=== PATIENT | female | born 1980 | race Caucasian/White ===

== ENCOUNTER → 2017-02-28 | Outpatient (CLI) | payer OTHER ==
[~2017-02-28] VITALS: Ht 162.6 cm; Wt 72.6 kg
[2017-02-28 12:54] LABS: Urine Bilirubin Negative (Negative); Urine Blood 1+ /uL (Negative); Urine Color Yellow (Yellow); Urine Glucose Normal (Normal); Urine Ketone Negative (Negative); Urine Nitrite Negative (Negative); Urine Urobilinogen Normal (Negative)
[2017-02-28 12:59] LABS: INR 0.96 (0.9-1.15); Partial Thromboplastin Time 29.5 sec (22.64-33.71); Prothrombin Time 10.5 sec (9.37-12.3)
[2017-02-28 13:08] LABS: Albumin 3.8 g/dL (3.4-5.0); BUN/Creatinine Ratio 16.9; Bilirubin, Total 0.4 mg/dL (0.2-1.0); Calcium 8.9 mg/dL (8.5-10.1); Potassium 3.4 mmol/L (3.5-5.1); Total Protein 7.8 g/dL (6.4-8.2)
[2017-02-28 14:10] LABS: Basophils # (auto) 0 uL; Basophils % (auto) 0.2 % (0.0-2.0); Eosinophils # (auto) 0 uL; Eosinophils % (auto) 0.2 % (0.0-7.0); Hematocrit 39.1 % (36.0-46.0); Hemoglobin 12.9 g/dL (12.2-16.2); Lymphocytes # (auto) 2.1 uL; Lymphocytes % (auto) 21.8 % (10.0-50.0); Mean Corpuscular Hemoglobin 29.9 pg (28.0-32.0); Mean Corpuscular Hgb Conc. 32.9 g/dL (32.0-36.0); Mean Corpuscular Volume 90.7 fL (80.0-100.0); Mean Platelet Volume 8.4 fL (6.9-10.8); Monocytes # (auto) 0.7 uL; Monocytes % (auto) 7.1 % (0.0-12.0); Neutrophils # (auto) 6.7 uL; Neutrophils % (auto) 70.7 % (37.0-80.0); Nucleated Red Blood Cells % 0.1 %; Platelet Count (auto) 281 10^3/uL (140-450); Red Cell Distribution Width 13.4 % (11.8-14.3); White Blood Cell 9.5 10^3/uL (4.4-10.8)
== END ==
LOC: LAB 08:00 → EDSTATUS 03-03 07:00
PROVIDERS: ATTEND Obstetrics & Gynecology
DX: Z30.2 Encounter for sterilization (principal); I10 Essential (primary) hypertension
CPT/HCPCS: 36415; 80053; 81003; 84702; 85025; 85610; 85730; 86850; 86900; 86901

== ENCOUNTER → 2017-03-16 | Outpatient (CLI) | payer OTHER | END | disposition home or self-care (01) | LOC: LAB 11:37 | PROVIDERS: ATTEND Obstetrics & Gynecology | DX: N91.2 Amenorrhea, unspecified (principal) | CPT/HCPCS: 36415; 84702 ==

== ENCOUNTER → 2017-03-23 | Outpatient (CLI) | payer OTHER | END | disposition home or self-care (01) | LOC: LAB 11:18 | PROVIDERS: ATTEND Obstetrics & Gynecology | DX: N91.2 Amenorrhea, unspecified (principal) | CPT/HCPCS: 36415; 84702 ==

== ENCOUNTER → 2017-04-06 | Outpatient (CLI) | payer OTHER | END | disposition home or self-care (01) | LOC: LAB 11:06 | PROVIDERS: ATTEND Obstetrics & Gynecology | DX: N91.2 Amenorrhea, unspecified (principal) | CPT/HCPCS: 36415; 84702 ==

== ENCOUNTER 2017-05-05 06:12 | Day surgery (SDC) | payer OTHER ==
[2017-05-04 11:28] LABS: Basophils # (auto) 0 uL; Basophils % (auto) 0.3 % (0.0-2.0); Eosinophils # (auto) 0 uL; Eosinophils % (auto) 0.5 % (0.0-7.0); Hematocrit 39.6 % (36.0-46.0); Hemoglobin 13.1 g/dL (12.2-16.2); Lymphocytes # (auto) 2.6 uL; Lymphocytes % (auto) 29.3 % (10.0-50.0); Mean Corpuscular Hemoglobin 30.3 pg (28.0-32.0); Mean Corpuscular Hgb Conc. 33.2 g/dL (32.0-36.0); Mean Corpuscular Volume 91.3 fL (80.0-100.0); Mean Platelet Volume 8.3 fL (6.9-10.8); Monocytes # (auto) 0.7 uL; Monocytes % (auto) 7.9 % (0.0-12.0); Neutrophils # (auto) 5.4 uL; Platelet Count (auto) 287 10^3/uL (140-450); Red Cell Distribution Width 13.8 % (11.8-14.3); Urine Bilirubin Negative (Negative); Urine Blood TRACE /uL (Negative); Urine Color Yellow (Yellow); Urine Glucose Normal (Normal); Urine Ketone Negative (Negative); Urine Nitrite POSITIVE (Negative); Urine Urobilinogen Normal (Negative); Urine pH 5.5 (5.0-8.0); White Blood Cell 8.7 10^3/uL (4.4-10.8)
[2017-05-04 11:44] LABS: INR 0.97 (0.9-1.15); Partial Thromboplastin Time 29.4 sec (22.64-33.71); Prothrombin Time 10.6 sec (9.37-12.3)
[2017-05-04 11:52] LABS: Albumin 3.9 g/dL (3.4-5.0); BUN/Creatinine Ratio 23.1; Calcium 9.3 mg/dL (8.5-10.1); Potassium 3.2 mmol/L (3.5-5.1)
[2017-05-04 11:54] LABS: Bilirubin, Total 0.4 mg/dL (0.2-1.0); Total Protein 8.4 g/dL (6.4-8.2)
[~2017-05-05] VITALS: Ht 162.6 cm; Wt 72.6 kg
[2017-05-05] MEDS ORDERED: ceFAZolin 1GM/50ML 50 ML IV ONE (06:32)
[2017-05-05] MEDS ORDERED: SUCCINYLCHOLINE CHLORIDE 20 MG/ML 10ML VIAL IV ONE (07:09)
[2017-05-05] MEDS ORDERED: METHYLENE BLUE 0.5% 5MG/ML 10ml AMP IV ONE (07:11)
[2017-05-05] MEDS ORDERED: LIDOCAINE HCL (LOCAL ANESTH.) 0.5 % 50ML MDV IJ ONE (07:11)
[2017-05-05] MEDS ORDERED: BUPIVACAINE 0.25% INJ 50ML VIAL ONE (07:11)
[2017-05-05] MEDS ORDERED: MEPERIDINE HCL (50 MG/ML) 1 ML VIAL ONE (07:16)
[2017-05-05] MEDS ORDERED: NEOSTIGMINE 1 MG/ML INJ (10mg/10ML VIAL) ONE (07:16)
[2017-05-05] MEDS ORDERED: PROPOFOL 10 MG/ML 20 ML IV ONE (07:16)
[2017-05-05] MEDS ORDERED: fentaNYL CITRATE 100 MCG/2 ML VL ONE (07:16)
[2017-05-05] MEDS ORDERED: GLYCOPYRROLATE 0.2 MG/ML 1ML VIAL ONE (07:16)
[2017-05-05] MEDS ORDERED: KETOROLAC TROMETH 60MG/2ML VIAL IM ONE (07:16)
[2017-05-05] MEDS ORDERED: ROCURONIUM 10MG/ML 10ML VIAL IV ONE (07:16)
[2017-05-05] MEDS ORDERED: MIDAZOLAM HCL 1MG/1ML-2 ML VIAL ONE (07:16)
[2017-05-05] MEDS ORDERED: ONDANSETRON HCL 4 MG/2 ML VIAL ONE (07:16)
[2017-05-05] MEDS ORDERED: LACTATED RINGER'S 1,000 ML IV SCH (08:24)
[2017-05-05] MEDS ORDERED: ONDANSETRON HCL 4 MG/2 ML VIAL IV PRN (08:30)
[2017-05-05 09:25] VITALS: BP 133/80
== END 2017-05-05 09:28 | disposition home or self-care (01) ==
LOC: SUR 06:12
PROVIDERS: ATTEND Obstetrics & Gynecology
DX: Z30.2 Encounter for sterilization (principal); D69.6 Thrombocytopenia, unspecified; E66.9 Obesity, unspecified; Z68.27 Body mass index [BMI] 27.0-27.9, adult
CPT/HCPCS: 36415; 58671; 80053; 81003; 84702; 85025; 85610; 85730; 86850; 86900; 86901; J0330; J0690; J1885; J2175; J2250; J2405; J2704; J3010; J3490

== ENCOUNTER → 2020-09-22 | Outpatient (CLI) | payer OTHER ==
[2020-09-22 09:45] LABS: Basophils # (auto) 0 10 ^3/uL (0-0.2); Basophils % (auto) 0.2 % (0.0-2.0); Eosinophils # (auto) 0 10 ^3/uL (0-0.8); Eosinophils % (auto) 0.6 % (0.0-7.0); Hematocrit 36.5 % (36.0-46.0); Hemoglobin 12.3 g/dL (12.2-16.2); Lymphocytes # (auto) 1.8 10 ^3/uL (0.4-5.4); Mean Corpuscular Hemoglobin 29.9 pg (28.0-32.0); Mean Corpuscular Hgb Conc. 33.6 g/dL (32.0-36.0); Mean Corpuscular Volume 88.8 fL (80.0-100.0); Monocytes # (auto) 0.5 10 ^3/uL (0-1.3); Monocytes % (auto) 7.8 % (0.0-12.0); Neutrophils # (auto) 4.4 10 ^3/uL (1.6-8.6); Neutrophils % (auto) 64.4 % (37.0-80.0); Nucleated Red Blood Cells % 0.2 %; Platelet Count (auto) 320 10^3/uL (140-450); Red Cell Distribution Width 14.3 % (11.8-14.3); White Blood Cell 6.8 10^3/uL (4.4-10.8)
[2020-09-22 09:50] LABS: Urine Bacteria MOD /hpf (None Seen); Urine Blood TRACE /uL (Negative); Urine Specific Gravity 1.025 (1.001-1.035); Urine WBC 8 /hpf (0 - 5)
[2020-09-22 10:36] LABS: Albumin 3.9 g/dL (3.4-5.0); Potassium 3.7 mmol/L (3.5-5.1)
[2020-09-22 10:42] LABS: BUN/Creatinine Ratio 16.7; Bilirubin, Total 0.3 mg/dL (0.2-1.0); Total Protein 7.9 g/dL (6.4-8.2)
== END | disposition home or self-care (01) ==
LOC: LAB 09:12
PROVIDERS: ATTEND Internal Medicine
DX: R53.83 Other fatigue (principal); R51.9 Headache, unspecified
CPT/HCPCS: 36415; 80053; 80061; 81001; 84439; 84443; 85025; 85652

== ENCOUNTER → 2021-10-19 | Outpatient (CLI) | payer OTHER ==
[2021-10-19 10:46] LABS: Follicle Stimulating Hormone 2.64 IU/L (SEE BELOW); Leuteinizing Hormone 3.4 IU/L
== END | disposition home or self-care (01) ==
LOC: LAB 09:10
PROVIDERS: ATTEND Obstetrics & Gynecology
DX: N93.9 Abnormal uterine and vaginal bleeding, unspecified (principal)
CPT/HCPCS: 36415; 82670; 83001; 83002; 84403; 84443

== ENCOUNTER 2021-12-24 07:25 | Day surgery (SDC) | payer OTHER ==
[2021-12-22 10:58] LABS: Basophils # (auto) 0 10 ^3/uL (0-0.2); Basophils % (auto) 0.2 % (0.0-2.0); Eosinophils # (auto) 0.1 10 ^3/uL (0-0.8); Eosinophils % (auto) 0.8 % (0.0-7.0); Hematocrit 37.3 % (36.0-46.0); Hemoglobin 12.3 g/dL (12.2-16.2); Lymphocytes # (auto) 1.7 10 ^3/uL (0.4-5.4); Lymphocytes % (auto) 26.5 % (10.0-50.0); Mean Corpuscular Hemoglobin 29.8 pg (28.0-32.0); Mean Corpuscular Volume 90.3 fL (80.0-100.0); Monocytes # (auto) 0.6 10 ^3/uL (0-1.3); Monocytes % (auto) 8.9 % (0.0-12.0); Neutrophils % (auto) 63.6 % (37.0-80.0); Nucleated Red Blood Cells % 0.1 %; Red Blood Cells 4.13 10^6/uL (4.0-5.20); Red Cell Distribution Width 14.3 % (11.8-14.3); White Blood Cell 6.3 10^3/uL (4.4-10.8)
[2021-12-22 11:13] LABS: Urine Bacteria MANY /hpf (None Seen); Urine Blood 1+ /uL (Negative); Urine Mucus FEW (None Seen); Urine Specific Gravity 1.026 (1.001-1.035); Urine WBC 13 /hpf (0 - 5)
[2021-12-22 12:02] LABS: INR 0.96 (0.9-1.15); Partial Thromboplastin Time 30.2 sec (24.6-33.4)
[2021-12-22 12:10] LABS: Albumin 3.5 g/dL (3.4-5.0); BUN/Creatinine Ratio 20.3; Bilirubin, Total 0.3 mg/dL (0.2-1.0); Calcium 8.8 mg/dL (8.5-10.1); Total Protein 7.4 g/dL (6.4-8.2)
[~2021-12-24] VITALS: Ht 162.6 cm; Wt 78.0 kg
[2021-12-24] MEDS ORDERED: ceFAZolin 1GM/50ML 100 ML IV ONE (07:45)
[2021-12-24] MEDS ORDERED: MEPERIDINE HCL (25 MG/ML) 1ML VIAL ONE (08:55)
[2021-12-24] MEDS ORDERED: MIDAZOLAM HCL 2MG/2ML 2ml VIAL (1mg/ml) ONE (08:56)
[2021-12-24] MEDS ORDERED: fentaNYL CITRATE 100 MCG/2 ML VL ONE (08:56)
[2021-12-24] MEDS ORDERED: LABETALOL HCL 5 MG/ML 4ML SYRINGE IV PRN (09:15)
[2021-12-24] MEDS ORDERED: MORPHINE SULFATE 4 MG/ML SYR/VIAL IV PRN (09:15)
[2021-12-24] MEDS ORDERED: HYDROmorphone HCL 2 MG/ML VL/or syr IV PRN (09:15)
[2021-12-24] MEDS ORDERED: MIDAZOLAM HCL 2MG/2ML 2ml VIAL (1mg/ml) IV PRN (09:15)
[2021-12-24] MEDS ORDERED: ePHEDrine SULFATE 50 MG/ML AMP IV PRN (09:15)
[2021-12-24] MEDS ORDERED: KETOROLAC TROMETH 30 MG/ML 1ML VIAL IV ONE (09:15)
[2021-12-24] MEDS ORDERED: ONDANSETRON HCL 4 MG/2 ML VIAL IV PRN ×2 (09:15→10:00)
[2021-12-24] MEDS ORDERED: DexAMETHasone SOD PHOS 10MG/1ML VIAL INJ ONE (09:32)
[2021-12-24] MEDS ORDERED: PROPOFOL 10 MG/ML 20 ML IV ONE (09:32)
[2021-12-24] MEDS ORDERED: ONDA-144 PO (10:00)
[2021-12-24] MEDS ORDERED: IBUP800T27 PO (10:00)
[2021-12-24] MEDS ORDERED: LACTATED RINGER'S 1,000 ML IV SCH (10:00)
[2021-12-24] MEDS ORDERED: HYDR-4902 PO (10:00)
[2021-12-24 10:40] VITALS: BP 126/80
== END 2021-12-24 10:44 | disposition home or self-care (01) ==
LOC: SUR 07:25
PROVIDERS: ATTEND Obstetrics & Gynecology
DX: N93.9 Abnormal uterine and vaginal bleeding, unspecified (principal); N92.0 Excessive and frequent menstruation with regular cycle; Z90.89 Acquired absence of other organs; Z83.3 Family history of diabetes mellitus; Z98.51 Tubal ligation status; Z20.822 Contact with and (suspected) exposure to COVID-19
CPT/HCPCS: 36415; 58558; 80053; 81001; 81025; 84702; 85025; 85610; 85730; 86850; 86900; 86901; J0690; J1100; J2175; J2250; J2704; J3010; U0003

== ENCOUNTER → 2025-03-26 | Outpatient (CLI) | payer OTHER ==
[~2025-03-26] MED LIST: HYDR-4902 PO; IBUP-1456 PO; ONDA-144 PO
[2025-03-26 09:40] LABS: Hematocrit 35.7 % (36.0-46.0); Hemoglobin 11.7 g/dL (12.2-16.2); Mean Corpuscular Hemoglobin 28.8 pg (28.0-32.0); Mean Corpuscular Volume 87.8 fL (80.0-100.0); Nucleated Red Blood Cells % 0.2 %
[2025-03-26 11:42] LABS: Calcium 9.1 mg/dL (8.7-10.4); Chloride 106 mmol/L (98-107); Potassium 4.0 mmol/L (3.5-5.1); Sodium 141 mmol/L (136-145)
[2025-03-26 11:43] LABS: Anion Gap 9 (5-15); Carbon Dioxide 26 mmol/L (20-31)
[2025-03-26 11:48] LABS: BUN/Creatinine Ratio 18.5 (10.0-20.0); Blood Urea Nitrogen 12 mg/dL (9-23); Glucose 96 mg/dL (74-106)
[2025-03-26 11:49] LABS: Beta HCG, Quantitative 1.1 mIU/mL (1.5-4.2)
[2025-03-26 11:51] LABS: Thyroid Stimulating Hormone 1.0 uIU/mL (0.55-4.78)
[2025-03-26 12:29] LABS: Follicle Stimulating Hormone 7.42 IU/L (SEE BELOW)
[2025-03-26 12:31] LABS: Free T4 (Free Thyroxine) 1.24 ng/dL (0.89-1.76)
== END | disposition home or self-care (01) ==
LOC: LAB 08:44
PROVIDERS: ATTEND Obstetrics & Gynecology
DX: E28.2 Polycystic ovarian syndrome (principal)
CPT/HCPCS: 36415; 80048; 82670; 83001; 83002; 83036; 84146; 84402; 84403; 84439; 84443; 84702; 85025

== ENCOUNTER 2025-04-25 06:35 | Day surgery (SDC) | payer OTHER ==
[2025-04-23 10:51] LABS: Hematocrit 37.0 % (36.0-46.0); Hemoglobin 12.0 g/dL (12.2-16.2); Mean Corpuscular Hemoglobin 28.4 pg (28.0-32.0); Mean Corpuscular Volume 87.6 fL (80.0-100.0); Nucleated Red Blood Cells % 0.0 %
[2025-04-23 11:03] LABS: INR 1.03 (0.9-1.15); Partial Thromboplastin Time 31.1 SEC (24.5-34.5); Prothrombin Time 10.9 sec (9.3-11.8)
[2025-04-23 11:07] LABS: Albumin 4.7 g/dL (3.2-4.8); Alkaline Phosphatase 94 U/L (46-116); Anion Gap 10 (5-15); BUN/Creatinine Ratio 18.9 (10.0-20.0); Blood Urea Nitrogen 14 mg/dL (9-23); Calcium 9.5 mg/dL (8.7-10.4); Carbon Dioxide 26 mmol/L (20-31); Chloride 106 mmol/L (98-107); Glucose 89 mg/dL (74-106); Potassium 4.0 mmol/L (3.5-5.1); Sodium 142 mmol/L (136-145); Total Protein 7.9 g/dL (5.7-8.2)
[2025-04-23 11:08] LABS: Bilirubin, Total 0.3 mg/dL (0.2-1.0)
[2025-04-23 11:09] LABS: Urine Protein, UAD Negative (Negative)
[2025-04-23 11:11] LABS: Alanine Aminotransferase 54 U/L (7-40)
--- NOTE | 2025-04-24 02:10 | DVHHP ---
ADMIT DATE: 04/25/2025 PREADMIT HISTORY AND PHYSICAL CHIEF COMPLAINT: Abnormal uterine bleeding. HISTORY OF PRESENT ILLNESS: The patient is a 44-year-old 3, para 3, admitted for D and C, hysteroscopy, and endometrial ablation. The patient's sonogram was consistent with a 9-week size uterus and a 9.6 x 5 x 60 cm uterus. She has been bleeding heavy and wanted ablation. Her endometrial biopsy will be done under anesthesia since the patient could not tolerate. The patient understands risks, complications, and the need for the possibility of another surgery if there are any precancerous or cancerous changes of the uterus. PAST MEDICAL HISTORY: None. PAST SURGICAL HISTORY: D and C and hysteroscopy. OBSTETRIC AND GYNECOLOGIC HISTORY: Two normal vaginal deliveries. REVIEW OF SYSTEMS: Consistent with HPI. PHYSICAL EXAMINATION: VITAL SIGNS: Temperature afebrile. HEENT: Within normal limits. CARDIOVASCULAR: Regular rate and rhythm. LUNGS: Clear to auscultation. BREASTS: No masses. ABDOMEN: Soft, nontender. PELVIC: External genitalia within normal limits. Vagina normal. Cervix is closed and normal appearing. Uterus 9 to 10-week size. Adnexa nonpalpable. EXTREMITIES: No clubbing, cyanosis, or edema. IMPRESSION: Menorrhagia. PLAN: D and C, hysteroscopy, and endometrial ablation. Informed consent obtained. Risks and complications of surgery including infection, bleeding, perforation of the uterus, risk of anesthesia, and failure rate of this procedure discussed. The patient options reviewed. All questions answered. The patient fully understands. She wishes to proceed with the planned procedure. DO BILLY Blood TID: [id number] RECEIPT: [id number]
[~2025-04-25] VITALS: Ht 162.6 cm; Wt 71.2 kg
[2025-04-25] MEDS ORDERED: ZOFR4T PO (07:56)
[2025-04-25] MEDS ORDERED: HYDR-4072 PO (07:56)
[2025-04-25] MEDS ORDERED: IBUP-1456 PO (07:56)
[2025-04-25] MEDS ORDERED: ONDANSETRON HCL 4 MG/2 ML VIAL IV PRN (08:00)
[2025-04-25] MEDS ORDERED: LACTATED RINGER'S 1,000 ML IV SCH (08:00)
[2025-04-25 08:38] VITALS: PULSE 66; RESP 12; O2SAT 100
[2025-04-25 08:49] VITALS: PULSE 87; RESP 12; O2SAT 100
[2025-04-25 09:15] VITALS: BP 118/77; PULSE 68; RESP 12; O2SAT 99
--- NOTE | 2025-04-25 12:59 | DVHOP2 ---
Operative Report DATE OF OPERATION: 04/25/25 PREOPERATIVE DIAGNOSES: 1. Desires elective tubal sterilization. POSTOPERATIVE DIAGNOSES: 1. Desires elective tubal sterilization. SURGEON: Lashae Scanlon D.O./gladys ANESTHESIOLOGIST: nakia TYPE OF ANESTHESIA : General. CONSENT: The patient was informed of the risks and benefits of the procedure. The patient was informed of the risks and benefits of the procedure. These include but are not limited to , complications of anesthesia, postoperative infection, incomplete relief of symptoms, recurrence of symptoms, damage to blood vessels, nerves and tendons, deep venous thrombosis, pulmonary embolism and possible need for repeat surgery in the future. FINDINGS: Cervix is grossly normal appearing. Uterus is 10 weeks' size. Adnexa nonpalpable. COMPLICATIONS: None. BLOOD PRODUCTS USED: None. PROCEDURES: Laparoscopic placement of Filschi Clips to bilateral tubes PROCEDURE IN DETAIL: The patient was taken to the operating room where she was placed under general anesthesia. The patient was then prepped and draped in the usual sterile manner in the dorsal lithotomy position. The bladder was emptied using a straight catheter. Examination under anesthesia revealed the above findings. A weighted speculum was placed in the vagina. The anterior lip of the cervix was grasped using single-tooth tenaculum. Cervix was dilated. Uterus sounded to 10 cm. HUMI catheter was placed. Attention was then turned to the abdomen where a Veress needle was introduced. Abdomen was distended with 3L of CO2 gas. Using Visiport, abdomen was entered under direct visualization. Survey of abdominal cavity revealed normal finding. A 8 mm trocar was placed into the suprapubic region. Filshie clip was then loaded on the right tube as well as the left. No bleeding was noted. All the instruments were removed from the abdomen and pelvis. CO2 gas released. Incisional ports were closed using #4-0 Vicryl and tio for the larger port. The patient tolerated the procedure well. All instruments were removed from the patient's cervix. The patient was taken to the recovery room in a stable condition. ESTIMATED BLOOD LOSS: 20 mL Visit Coding OBGYN Date of Service: Apr 25, 2025 Billing Provider: LASHAE SCANLON DO ENTERPRISE INTEGRATION ARCHITECT Common Visit Codes: 43137-WBSWOIV OBS CARE (HIGH) ENTERPRISE INTEGRATION ARCHITECT Procedure Codes: 39863-[id number], SURG: W/EA, 47628-QUS.SURG:ON OVIDUCT/OVARY YAIRLASHAE DO Apr 25, 2025 12:59
--- NOTE | 2025-04-25 13:01 | POSTOP ---
Post-Operative Note Post-Operative Note Preop Diagnosis aub Postop Diagnosis: aub Operation performed d and c,huysteroscopy endometrial ablation Specimen emc Anesthesia: Mac Anesthesiologist: nakia Blood Loss(fluid mgmt) 20ml Surgeon Dash Scanlon Implant na Complications & Mgmt none Date 04/25/25 Time 12:59 Visit Coding OBGYN Date of Service: Apr 25, 2025 Billing Provider: DASH SCANLON DO UNDERGRADUATE ADVISOR Common Visit Codes: 77912-NWMITQC OBS CARE (HIGH) UNDERGRADUATE ADVISOR Procedure Codes: 46126-[id number], SURG: W/EA DASH SCANLON DO Apr 25, 2025 13:01
--- NOTE | 2025-04-25 13:02 | DVHDS2 ---
Physician Discharge Progress N Final Diagnosis: aub Operations or Procedures: Operations or Procedures d and c,huysteroscopy endometrial ablation Condition on Discharge: Good Disposition: Home Discharge Instructions: Diet: Regular Activity: Light activity Follow Up/Referral: 1wk Medications: toya spencerco Follow Up Care: Specialist: 1w Discharge Statement: "Patient was advised to return to the ER or call 911 if any headaches, dizziness, shortness of breath, chest pain, abdominal pain, bleeding, fevers, or worsening of medical condition. Patient was counseled about treatment plan, medications, possible side effects, patientverbalized understanding. All questions were answered to the best of my ability. This discharge took greater then 30 minutes in planning, reviewing documentation, counseling the patient, and discussing with other team members." Visit Coding OBGYN Date of Service: Apr 25, 2025 Billing Provider: DASH MAZARIEGOS DO DYNAMOMETER REPAIRER Common Visit Codes: 06981-[id number] INP/OBS CARE(HIGH), 17964-QTD/OBS DISCH DAY >30MIN DYNAMOMETER REPAIRER Procedure Codes: 92529-[id number], SURG: W/DASH MCKEON DO Apr 25, 2025 13:02
== END 2025-04-25 09:28 | disposition home or self-care (01) ==
LOC: SUR 06:35
PROVIDERS: ATTEND Obstetrics & Gynecology
DX: Z30.2 Encounter for sterilization (principal); N92.0 Excessive and frequent menstruation with regular cycle; Z79.899 Other long term (current) drug therapy; Z86.2 Personal history of diseases of the blood and blood-forming organs and certain disorders involving the immune mechanism; Z98.890 Other specified postprocedural states
CPT/HCPCS: 36415; 80053; 81001; 81025; 84702; 85025; 85610; 85730; 86850; 86900; 86901